=== PATIENT | male | born 1995 | race Caucasian/White ===

== ENCOUNTER 2023-06-13 10:59 | Outpatient (CLI) | payer OTHER | END 2023-06-13 11:00 | disposition home or self-care (01) | LOC: MADRAD 10:59 | PROVIDERS: ATTEND Registered Nurse | DX: S67.01XA Crushing injury of right thumb, initial encounter (principal) ==

== ENCOUNTER 2025-05-03 19:26 | Emergency (ER) | payer OTHER, SELFPAY ==
[2025-05-03] MEDS ORDERED: Bacitracin 1 PK ONE (20:42)
== END 2025-05-03 20:48 | disposition home or self-care (01) ==
LOC: MADERS 19:26
DX: S01.01XA Laceration without foreign body of scalp, initial encounter (principal); W22.8XXA Striking against or struck by other objects, initial encounter; Y99.0 Civilian activity done for income or pay
CPT/HCPCS: 12004; 70450